=== PATIENT | female | born 1960 | race Caucasian/White ===

== ENCOUNTER → 2024-01-04 07:57 | Outpatient (REF) | payer OTHER, SELFPAY | LOC: MRI 07:57 | PROVIDERS: ATTENDING PHYSICIAN Psychiatry & Neurology Neurology; FAMILY PHYSICIAN Family Medicine | DX: C85.89 Other specified types of non-Hodgkin lymphoma, extranodal and solid organ sites (principal) | CPT/HCPCS: 70553; A9575 ==

== ENCOUNTER → 2024-02-24 10:11 | Outpatient (REF) | payer MEDICARE, OTHER, SELFPAY | LOC: MRI 10:11 | PROVIDERS: ATTENDING PHYSICIAN Psychiatry & Neurology Neurology; FAMILY PHYSICIAN Family Medicine | DX: C85.89 Other specified types of non-Hodgkin lymphoma, extranodal and solid organ sites (principal) | CPT/HCPCS: 70553; A9575 ==

== ENCOUNTER → 2024-06-23 09:52 | Outpatient (REF) | payer OTHER, SELFPAY | LOC: MRI 09:52 | PROVIDERS: ATTENDING PHYSICIAN Psychiatry & Neurology Neurology; OTHER PHYSICIAN Internal Medicine; REFERRING PHYSICIAN Nurse Practitioner Family | DX: C85.89 Other specified types of non-Hodgkin lymphoma, extranodal and solid organ sites (principal) | CPT/HCPCS: 70553; A9575 ==

== ENCOUNTER → 2024-11-01 10:07 | Outpatient (REF) | payer OTHER, SELFPAY | LOC: PAVMRI 10:07 | PROVIDERS: ATTENDING PHYSICIAN Nurse Practitioner Family | DX: C85.89 Other specified types of non-Hodgkin lymphoma, extranodal and solid organ sites (principal) | CPT/HCPCS: 70553; A9575 ==